=== PATIENT | male | born 1990 | race Caucasian/White ===

== ENCOUNTER 2022-01-29 08:07 | Emergency (ER) | payer BC, SELFPAY ==
[2022-01-29 08:13] VITALS: BP 123/90; PULSE 122; RESP 18; TEMP 36.7; O2SAT 99
--- NOTE | 2022-01-29 08:33 | ECG_ITS ---
Measurements Intervals [place] Rate: 93 P: 49 OR: 160 QRS: 21 QRSD: 104 T: 58 QT: 350 QTc: 435 Interpretive Statements SINUS RHYTHM LOW QRS VOLTAGE IN PRECORDIAL LEADS [QRS DEFLECTION < 1.0 mV IN CHEST LEADS] NONSPECIFIC T WAVE ABN NO PREVIOUS ECG AVAILABLE FOR COMPARISON Electronically Signed On 01-29-2022 12:52:09 CDT by Singh Guevara M.D.
--- NOTE | 2022-01-29 08:33 | ED.GENADULT ---
HPI - General Adult General Chief complaint: Allergic Reaction Stated complaint: allergic reaction Time Seen by Provider: 01/29/22 08:15 History of Present Illness HPI narrative: This is a 31-year-old male presenting ED with allergic reaction. Patient woke up this morning and noticed that he has had swelling of his lips, itching on his hands and hives over his arms. He is also noting some chest tightness. Patient has no noted anaphylactic reactions in the past. He denies any new use of lotions, detergents or colognes. He does not know the trigger. He denies sensation of throat closure or difficulty breathing. Denies nausea vomiting diarrhea Related Data Allergies Allergy/AdvReac Type Severity Reaction Status Date / Time Penicillins Allergy Unknown Verified 01/29/22 08:18 Review of Systems Review of Systems: CONSTITUTIONAL: Denies night sweats. EYES: No eye pain ENT: Denies rhinorrhea CARDIOVASCULAR: Denies palpitations RESPIRATORY: Denies hemoptysis GASTROINTESTINAL: Denies hematemesis GENITOURINARY: Denies hematuria. SKIN: Denies rash MUSCULOSKELETAL: Denies myalgia. NEUROLOGIC: Denies weakness. PSYCHIATRIC: Denies delusions Exam Narrative: APPEARANCE: No apparent distress. Head patient has swelling of his upper and lower lips. No swelling of the uvula or the tongue. Patient's voice is not hoarse. He is not having difficulty swallowing. EYES: PERRLA/EOMI, NOSE: Normal no drainage NECK: Supple, Trachea midline RESPIRATORY: Faint is scattered expiratory wheezing no jose d increased work of breathing not tachypneic CARDIOVASCULAR: S1S2 appreciated ABDOMINAL: Soft, nontender, nondistended, MUSCULOSKELETAl: No obvious deformities NEURO: Alert. Moving 4/4 extremities SKIN:: urticarial hives over the patient's right forearm PSYCHIATRIC: Normal affect Course Vital Signs Vital signs: Vital Signs Temperature 98.1 F 01/29/22 08:13 Pulse Rate 122 H 01/29/22 08:13 Respiratory Rate 18 01/29/22 08:13 Blood Pressure 123/90 01/29/22 08:13 Pulse Oximetry 99 01/29/22 08:13 Oxygen Delivery Room Air 01/29/22 08:13 Temperature 98.1 F 01/29/22 08:13 Pulse Rate 66 01/29/22 11:46 Respiratory Rate 16 01/29/22 11:46 Blood Pressure 132/86 01/29/22 11:46 Pulse Oximetry 98 01/29/22 11:46 Oxygen Delivery Room Air 01/29/22 08:13 Medical Decision Making MDM Narrative Medical decision making narrative: this is a 31-year-old male presenting ED following allergic reaction. He has involvement of his lips, lungs and is tachycardic. He will be given 2 L of fluid. He has been given epi, dexamethasone, Pepcid and Benadryl. He will be monitored for 4 hours to ensure that his symptoms are improving. EKG interpretation: Rhythm [sinus], Rate 93, [place] -[normal], [place] -[normal], QRS [narrow], QTC [normal], T waves -[negative for concerning inversions], ST Segments - [Negative for concerning elevations] Final interpretations: [Normal Sinus Rhythm] patient was monitored for 4 hours. He has had complete resolution of his hives and chest tightness. His lip swelling has improved dramatically. Patient is comfortable being discharged home with an EpiPen. Patient given return precautions if he develops symptoms again. Vital Signs Vital Signs: Vital Signs Temperature 98.1 F 01/29/22 08:13 Pulse Rate 122 H 01/29/22 08:13 Respiratory Rate 18 01/29/22 08:13 Blood Pressure 123/90 01/29/22 08:13 Pulse Oximetry 99 01/29/22 08:13 Oxygen Delivery Room Air 01/29/22 08:13 Temperature 98.1 F 01/29/22 08:13 Pulse Rate 66 01/29/22 11:46 Respiratory Rate 16 01/29/22 11:46 Blood Pressure 132/86 01/29/22 11:46 Pulse Oximetry 98 01/29/22 11:46 Oxygen Delivery Room Air 01/29/22 08:13 Lab Data Result diagrams: 01/29/22 08:45 01/29/22 08:45 Labs: Lab Results 01/29/22 01/29/22 Range/Units 08:45 08:45 WBC 12.9 H (4.5-
[2022-01-29] MEDS: FAMOTIDINE 20 MG/2 ML VIAL 40 MG IV PUSH (08:39)
[2022-01-29] MEDS: diphenhydrAMINE HCl INJ 50 MG/ML VIAL IV PUSH (08:40)
[2022-01-29] MEDS: SODIUM CHLORIDE 0.9% IV 2,000 ML 999 ML IV CONT (08:40)
[2022-01-29] MEDS: EPINEPHrine HCL INJ 1 MG/ML AMPUL 0.3 MG IM (08:46)
[2022-01-29 08:48] LABS: Basophils Percent Auto 0.2 % (0.2-1.2); Eosinophils Percent Auto 0.3 % (0-4.4); Hemoglobin 15.2 g/dL (14.0-18.0); Immature Granulocyte Absolute 0.06 K/mm3 (0.00-0.031); Immature Granulocyte Percent A 0.5 % (0-0.5); Lymphocytes Absolute Auto 2.02 K/mm3 (0.9-3.2); Lymphocytes Percent Auto 15.6 % (18.3-44.2); Mean Corpuscular HGB Conc 34.5 g/dl (32-36); Mean Corpuscular Hemoglobin 30.3 pg (26-34); Mean Corpuscular Volume 87.6 fl (80-100); Mean Platelet Volume 10.8 fl (7.4-10.4); Monocytes Absolute Auto 0.5 K/mm3 (0.1-0.6); Monocytes Percent Auto 3.6 % (2.6-8.5); Neutrophils Absolute Auto 10.3 K/mm3 (1.3-6.7); Neutrophils Percent Auto 79.8 % (45.5-73.1); Platelet Count Result 213 k/mm3 (150-375); Red Blood Count 5.02 M/mm3 (4.6-6.20); Red Cell Distribution Width 12.8 % (11.5-14.5); White Blood Count 12.9 K/mm3 (4.5-10.0)
[2022-01-29 08:59] LABS: Anion Gap 12 mmol/L (8-16); Blood Urea Nitrogen 14 mg/dL (9-20); Carbon Dioxide 22 mmol/L (22-30); Chloride 104 mmol/L (98-107); Estimated Glomerular Filt Rate > 60; Glucose 145 mg/dL (65-110); Magnesium 1.7 mg/dL (1.6-2.3); Potassium 3.7 mmol/L (3.4-5.0); Sodium 138 mmol/L (137-145)
[2022-01-29] MEDS: DEXAMETHASONE SOD PHOS INJ 4 MG/ML VIAL 12 MG IV PUSH (09:57)
[2022-01-29 11:46] VITALS: BP 132/86; PULSE 66; RESP 16; O2SAT 98
[2022-01-29 12:49] VITALS: BP 140/86; PULSE 93; RESP 16; O2SAT 98
== END 2022-01-29 12:50 | disposition home or self-care (01) ==
PROVIDERS: Emergency Provider Emergency Medicine
DX: T78.2XXA Anaphylactic shock, unspecified, initial encounter (principal); T78.3XXA Angioneurotic edema, initial encounter; R94.31 Abnormal electrocardiogram [ECG] [EKG]
CPT/HCPCS: 36415; 80048; 83735; 85025; 93005; 96361; 96372; 96374; 96375; 99284; J0171; J1100; J1200; J7030

== ENCOUNTER 2022-01-31 08:45 | Emergency (ER) | payer BC, SELFPAY ==
--- NOTE | ~2022-01-31 | XR_ITS ---
EXAMINATION: XR chest 1V portable DATE: 01/31/2022 09:37 INDICATION: Productive cough. Wheezing. TECHNIQUE: A single frontal view of the chest was obtained. COMPARISON: None. FINDINGS: The chest demonstrates clear lungs without pneumonia, pleural effusion, or pneumothorax. Th e heart size is normal. IMPRESSION: 1. No acute cardiopulmonary disease. Reviewed, dictated and finalized at location A.
[2022-01-31 08:48] VITALS: BP 124/78; PULSE 107; RESP 18; TEMP 36.4; O2SAT 97
--- NOTE | 2022-01-31 08:51 | ED.ALLEREA ---
HPI - Allergic Reaction General Chief complaint: Allergic Reaction Stated complaint: Hives, axr Time Seen by Provider: 01/31/22 08:51 Source: patient Mode of arrival: ambulatory Limitations: no limitations History of Present Illness HPI narrative: Patient is a 31-year-old male returning to the emergency department for evaluation of recurrence of hives and facial swelling. Patient was seen here January 29 and diagnosed with a nonspecific allergic reaction. He was given Benadryl, famotidine, epinephrine, steroids in the ER with improvement in his symptoms. Patient was not discharged home with any steroid therapy. Patient was recently treated for a sinus infection with azithromycin. He did not finish that prescription, last azithromycin tablet was Monday 01/29. Patient states that he felt well after discharge home from the emergency department, but then symptoms recurred yesterday. Patient states that hives initially began over his chest, upper and lower extremities. Patient awakened with facial swelling today but denies lip swelling. No difficulty swallowing. Patient does report cough and mild wheezing which he attributes to his sinus infection. 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 Patient denies any new soaps, lotions or detergents. The azithromycin and Mucinex D were the only new medications the patient had been on. Related Data Home Medications Medication Instructions Recorded Confirmed atorvastatin 20 mg tablet mg 01/31/22 lisinopril 20 mg tablet mg 01/31/22 meloxicam 7.5 mg tablet mg 01/31/22 quetiapine 200 mg tablet mg 01/31/22 Allergies Allergy/AdvReac Type Severity Reaction Status Date / Time coconut Allergy Unknown Verified 01/31/22 08:53 Penicillins Allergy Unknown Verified 01/29/22 08:18 Review of Systems Review of Systems: CONSTITUTIONAL: Denies fever, chills, or sweats. EYES: Denies visual changes, redness, or discharge. ENT: Reports rhinorrhea, congestion CARDIOVASCULAR: Denies chest pain, palpitations, or edema. RESPIRATORY: Reports cough, wheezing, denies shortness of breath GASTROINTESTINAL: Denies abdominal pain, nausea, vomiting, or diarrhea. GENITOURINARY: Denies dysuria or hematuria. SKIN: Reports hives MUSCULOSKELETAL: Denies back pain, joint pain, or myalgia. NEUROLOGIC: Denies headache, numbness, or weakness. [facility] Social History Social History (Updated 01/31/22 @ 09:09 by Anne Kerr MD) Smoking status: Current every day smoker Alcohol intake: never Substance use: never Gender identity (if verbalized by the patient): Male Exam Narrative: GENERAL: Awake, alert, conversant HEAD: Normocephalic, atraumatic. EYES: PERRLA and EOMI. There is mild superior orbital edema. ENT: Nares clear, no rhinorrhea or epistaxis. Mucous membranes moist. Uvula is midline. No trismus. No tongue or lip edema. No uvular edema. NECK: Supple. CHEST: No respiratory distress, patient with expiratory wheezing in the mid lung sounds bilaterally, rhonchi bilaterally HEART: Tachycardic rate, sinus rhythm ABDOMEN:Non distended, non tender EXTREMITIES: Normal range of motion. No edema. SKIN: Warm, dry, scattered urticaria to the chest, posterior thorax, upper and lower extremities NEURO:No focal deficits. Alert and oriented x3 Course Vital Signs Vital signs: Vital Signs Temperature 36.4 C 01/31/22 08:48 Pulse Rate 107 H 01/31/22 08:48 Respiratory Rate 18 01/31/22 08:48 Blood Pressure 124/78 01/31/22 08:48 Pulse Oximetry 97 01/31/22 08:48 Oxygen Delivery Room Air 01/31/22 08:48 Temperature 36.4 C 01/31/22 08:48 Pulse Rate 95 01/31/22 09:22 Respiratory Rate 15 01/31/22 09:22 Blood Pressure 124/78 01/31/22 08:48 Pulse Oximetry 97 01/31/22 08:48 Oxygen Delivery Room Air 01/31/22 08:48 MDM - Allergic Reaction MDM Narrative Medical decision
[2022-01-31 09:14] VITALS: PULSE 100; RESP 12
[2022-01-31] MEDS: IPRATROPIUM BR 0.02% INH SOLN 0.5 MG/2.5 ML VIAL INHALATION (09:16)
[2022-01-31] MEDS: ALBUTEROL SULFATE NEB 2.5 MG/3 ML INH 5 MG INHALATION (09:16)
[2022-01-31 09:22] VITALS: PULSE 95; RESP 15
[2022-01-31 09:22] LABS: Basophils Percent Auto 0.3 % (0.2-1.2); Eosinophils Absolute Auto 0.1 K/mm3 (0-0.3); Eosinophils Percent Auto 0.3 % (0-4.4); Hematocrit 43.2 % (42.0-52.0); Hemoglobin 14.5 g/dL (14.0-18.0); Immature Granulocyte Percent A 0.7 % (0-0.5); Lymphocytes Absolute Auto 2.48 K/mm3 (0.9-3.2); Lymphocytes Percent Auto 16.8 % (18.3-44.2); Mean Corpuscular HGB Conc 33.6 g/dl (32-36); Mean Corpuscular Hemoglobin 30.1 pg (26-34); Mean Corpuscular Volume 89.6 fl (80-100); Mean Platelet Volume 10.9 fl (7.4-10.4); Monocytes Absolute Auto 0.4 K/mm3 (0.1-0.6); Monocytes Percent Auto 2.9 % (2.6-8.5); Neutrophils Absolute Auto 11.6 K/mm3 (1.3-6.7); Platelet Count Result 239 k/mm3 (150-375); Red Blood Count 4.82 M/mm3 (4.6-6.20); Red Cell Distribution Width 12.9 % (11.5-14.5); White Blood Count 14.7 K/mm3 (4.5-10.0)
[2022-01-31] MEDS: diphenhydrAMINE HCl INJ 50 MG/ML VIAL 25 MG IV PUSH (09:25)
[2022-01-31] MEDS: SODIUM CHLORIDE 0.9% IV 1,000 ML 999 ML IV CONT (09:25)
[2022-01-31] MEDS: FAMOTIDINE 20 MG/2 ML VIAL 40 MG IV PUSH (09:26)
[2022-01-31] MEDS: EPINEPHrine HCL INJ 1 MG/ML AMPUL 0.3 MG IM (09:26)
[2022-01-31 09:34] LABS: Anion Gap 10 mmol/L (8-16); Blood Urea Nitrogen 23 mg/dL (9-20); Calcium 8.5 mg/dL (8.4-10.2); Carbon Dioxide 22 mmol/L (22-30); Chloride 103 mmol/L (98-107); Estimated CRCL calculation 141 ml/min; Estimated Glomerular Filt Rate > 60; Glucose 137 mg/dL (65-110); Potassium 3.6 mmol/L (3.4-5.0); Sodium 135 mmol/L (137-145)
--- NOTE | 2022-01-31 10:49 | PC.NURSE ---
Redness and swelling decreased significantly. Offers no c/o.
[2022-01-31 13:45] VITALS: BP 120/91; PULSE 80; RESP 20; O2SAT 96
== END 2022-01-31 13:45 | disposition home or self-care (01) ==
PROVIDERS: Emergency Provider Emergency Medicine
DX: T78.40XA Allergy, unspecified, initial encounter (principal); R06.2 Wheezing; F17.210 Nicotine dependence, cigarettes, uncomplicated
CPT/HCPCS: 36415; 71045; 80048; 85025; 94640; 96361; 96372; 96374; 96375; 99284; J0171; J1100; J1200; J7030

== ENCOUNTER 2022-07-30 13:36 | Emergency (ER) | payer BC, SELFPAY ==
[2022-07-30 13:41] VITALS: BP 129/89; PULSE 100; RESP 16; TEMP 36.4; O2SAT 97
--- NOTE | 2022-07-30 15:31 | ED.GENADULT ---
HPI - General Adult General Chief complaint: Unspecified Stated complaint: feels like pills are getting stuck in sinuses Time Seen by Provider: 07/30/22 14:52 History of Present Illness HPI narrative: Patient presents because about a week ago he noticed that when he took Seroquel it seems like it is getting stuck in the back of his throat. He feels like his sinuses feel stuffed. He drank a lot of water and ate some food and after a day or so the feeling went away. However the last few days he feels like that sensation of his pills being stuck in the back of the throat is happening again, he is continuing to eat and drink without any issues, this only happens with pills even with small pills. Related Data Home Medications Medication Instructions Recorded Confirmed atorvastatin 20 mg tablet mg 01/31/22 lisinopril 20 mg tablet mg 01/31/22 meloxicam 7.5 mg tablet mg 01/31/22 quetiapine 200 mg tablet mg 01/31/22 Allergies Allergy/AdvReac Type Severity Reaction Status Date / Time azithromycin Allergy Swelling Verified 07/30/22 13:49 coconut Allergy Unknown Verified 07/30/22 13:49 Penicillins Allergy Unknown Verified 07/30/22 13:49 Review of Systems Review of Systems: CONST: No fever. HEENT: Sensation of pills getting stuck C/V: No chest pain RESP: No cough GI: No nausea/vomiting : No dysuria. M/S: No joint pain. SKIN: No rash. NEURO: [No headache or focal numbness or weakness] PSYCH: [No depression] [facility] Social History Social History Smoking status: Current every day smoker Alcohol intake: never Substance use: never Gender identity (if verbalized by the patient): Male Exam Narrative: EXAMINATION OF ORGAN SYSTEMS/BODY AREAS: Constitutional: Vital signs per nursing GENERAL:[No acute distress, non-toxic appearing.] HEAD: Normal with no signs of head trauma. EYES: EOMI, conjunctiva normal ENT: Clear pharynx, normal voice LUNGS: Nonlabored breathing. HEART: [Regular rate and rhythm] ABD: No distension EXT: Normal range of motion SKIN: [No rashes or lesions.] NEURO: [Alert and oriented x 3. No gross focal sensory or strength deficits.] PSYCH: Normal affect Course Vital Signs Vital signs: Vital Signs Temperature 97.6 F 07/30/22 13:41 Pulse Rate 100 07/30/22 13:41 Respiratory Rate 16 07/30/22 13:41 Blood Pressure 129/89 07/30/22 13:41 Pulse Oximetry 97 07/30/22 13:41 Oxygen Delivery Room Air 07/30/22 13:41 Temperature 97.6 F 07/30/22 13:41 Pulse Rate 100 07/30/22 13:41 Respiratory Rate 16 07/30/22 13:41 Blood Pressure 129/89 07/30/22 13:41 Pulse Oximetry 97 07/30/22 13:41 Oxygen Delivery Room Air 07/30/22 13:41 Medical Decision Making MDM Narrative Medical decision making narrative: 32-year-old male with sensation of pills being stuck in his throat without any issues with eating or drinking normal food or drinks, is well-appearing here with clear voice, normal pharynx, tolerating p.o. here without any issues, he states that the feeling seems to be high up in his throat so I will have him follow-up with ENT outpatient in case the scope is necessary. If he has any locking or other reason for his symptoms. I will also try Flonase at this time given his sensation of soft sinuses. He is asked to return immediately for any difficulty with eating or drinking or if the sensation of pills being stuck in his throat continues. Patient agreeable to this plan. Vital Signs Vital Signs: Vital Signs Temperature 97.6 F 07/30/22 13:41 Pulse Rate 100 07/30/22 13:41 Respiratory Rate 16 07/30/22 13:41 Blood Pressure 129/89 07/30/22 13:41 Pulse Oximetry 97 07/30/22 13:41 Oxygen Delivery Room Air 07/30/22 13:41 Temperature 97.6 F 07/30/22 13:41 Pulse Rate 100 07/30/22 13:41 Respiratory Rate 16 07/30/22 13:41 Blood Pressure 129/89 07/30/22 13:41 Pulse Oxim
== END 2022-07-30 15:39 | disposition home or self-care (01) ==
PROVIDERS: Emergency Provider Emergency Medicine; PCP Physician Assistant
DX: R13.10 Dysphagia, unspecified (principal); F17.200 Nicotine dependence, unspecified, uncomplicated
CPT/HCPCS: 99283